=== PATIENT | male | born 1945 | race Caucasian/White ===

== ENCOUNTER → 2017-07-13 07:10 | Outpatient (CLI) | payer MEDICARE, SELFPAY ==
[2017-07-13 10:48] LABS: Anion Gap 11.5 mEq/L (5-15); Blood Urea Nitrogen 34 mg/dL (7-18); Carbon Dioxide 34 mmol/L (21.0-32.0); Chloride 104 mmol/L (98-107); Creatinine,Serum 1.67 mg/dL (0.70-1.30); Estimated Glomerular Filt Rate 41 ml/min (>60); GFR (African American) 49 ML/MIN (>60); Glucose 140 mg/dL (74-106); Potassium 4.5 mmoL/L (3.5-5.1); Sodium 145 mmol/L (136-145)
== END ==
PROVIDERS: PCP Internal Medicine Adolescent Medicine; Visit Provider Physician Assistant
DX: I42.9 Cardiomyopathy, unspecified (principal); I10 Essential (primary) hypertension; E78.5 Hyperlipidemia, unspecified; I25.10 Atherosclerotic heart disease of native coronary artery without angina pectoris
CPT/HCPCS: 36415; 80048

== ENCOUNTER → 2017-12-01 11:11 | Outpatient (CLI) | payer MEDICARE, SELFPAY ==
--- NOTE | 2017-12-01 11:19 | XR_ITS ---
XR ankle RT min 3V HISTORY: ITS.REASON: RT ANKLE PAIN ORDERING PHYSICIAN: Juan C Ervin MD PATIENT AGE: 72 years COMPARISON: None FINDINGS: No fracture or dislocation. No lytic or blastic change. There is normal mineralization.. The joint spaces are well-preserved. No significant degenerative/arthritic changes. No erosive changes evident. There is mild soft tissue swelling laterally IMPRESSION: Mild lateral soft tissue swelling otherwise negative right ankle
== END ==
PROVIDERS: PCP Internal Medicine Adolescent Medicine; Visit Provider Internal Medicine Adolescent Medicine
DX: M25.571 Pain in right ankle and joints of right foot (principal)
CPT/HCPCS: 73610

== ENCOUNTER → 2018-01-14 08:20 | Outpatient (CLI) | payer MEDICARE, SELFPAY ==
[2018-01-14 08:43] LABS: Blood Urea Nitrogen 27 mg/dL (7-18); Creatinine,Serum 1.56 mg/dL (0.70-1.30); Estimated Glomerular Filt Rate 44 ml/min (>60); GFR (African American) 53 ML/MIN (>60)
--- NOTE | 2018-01-14 08:57 | CT_ITS ---
CT chest w con HISTORY: ITS.REASON: pulmonary nodules ORDERING PHYSICIAN: Miguel Jordan MD PATIENT AGE: 72 years COMPARISON: CT chest January 2017 Technique: Axial images obtained. 75 cc IV utilized. Patient hydrated before and after scan. Sagittal and coronal reformatted images are also generated and reviewed. All CT scans at the facility use one or more dose reduction, viz: automated exposure control; ma/kV adjustment per patient size (including targeted exams where dose is matched to indication; i.e. head); or iterative reconstruction technique. FINDINGS: LUNG VALENTINO This study is performed to further evaluate a small nodule seen right upper lobe towards apex on prior January 2017 CT.. On today's study small 4.4q mm nodule noncalcified is again seen at the periphery right upper lobe and stable. If not very slightly less evident No infiltrate. No acutePulmonary findings. Minimal linear scarring accounts for the minimal density at medial left lung base Small calcified granuloma seen at the medial aspect of the right lung base, medial posterior sulcus. HEART: No significant pericardial effusion mild cardiomegaly with. Left ventricular enlargement/dilatation suggested MEDIASTINAL AND HILAR STRUCTURES: No mediastinal or hilar mass evident. No significant/dominant adenopathy. There 15 mm x 10 borderline enlarged lymph node right paratracheal region. (Slightly larger than 2017 study at which time this node measured 13 x 8 mm) . Other adjacent moderate nodes measuring up to 12 mm are seen in the same region. Scattered small nodes in the pretracheal region largest measuring 13 x 10 mm lymph node right paratracheal region which is actually larger previously measuring 13 mm x 8 mm. And because these features I would again suggest a follow-up study in an 9 months to exclude any progressive the adenopathy suggested and to follow the likely benign lung nodule AORTA: No acute finding. No thoracic aortic aneurysm or dissection evident PLEURAL SPACES: No significant effusion. No evidence of pneumothorax. BONY STRUCTURES: No acute bony abnormalities apparent UPPER ABDOMEN: 3.3 x 2.6 cm densely calcified gallstone in neck of gallbladder. No inflammatory changes. No biliary ductal dilatation Right kidney 8 cm cyst again noted. Stable 2.3 cm. Diffuse fatty changes of liver. Mild gynecomastia bilaterally again noted. T-spine intact. Ribs intact. Cyst anterior aspect of spleen ---------IMPRESSION: -------- 1. Stable tiny noncalcified nodule at the periphery right upper lobe .. Measuring 4.5 mm.,. No significant changes 2017 . Follow-up adequate Minimal parenchymal scarring left base stable. Not of concern 2. Mediastinal lymph nodes are very slightly more generous vs 2017 . Right paratracheal node upper normal in size measuring 15 x 10 mm. 3. Follow-up CT chest in 9 months suggested... 4. Cholelithiasis. Hepatic steatosis. Stable Benign right renal cyst. Stable anterior left splenic cyst 5. Mild Cardiomegaly with left ventricular enlargement suggested
--- NOTE | 2018-01-14 10:11 | HMH.ITSHM ---
ASPIRIN,KALIN MARESQ, PROCARDIAKRISTINEYKCATARINARIN
== END ==
PROVIDERS: PCP Internal Medicine Adolescent Medicine; Visit Provider Internal Medicine
DX: R91.1 Solitary pulmonary nodule (principal); R91.8 Other nonspecific abnormal finding of lung field; I25.10 Atherosclerotic heart disease of native coronary artery without angina pectoris; I10 Essential (primary) hypertension; I35.1 Nonrheumatic aortic (valve) insufficiency; I34.0 Nonrheumatic mitral (valve) insufficiency; I42.9 Cardiomyopathy, unspecified; I44.7 Left bundle-branch block, unspecified; E78.5 Hyperlipidemia, unspecified
CPT/HCPCS: 36415; 71260; 82565; 84520; Q9967

== ENCOUNTER 2018-05-20 02:53 | Inpatient (IN) ==
[2018-05-20 03:10] LABS: ABG Base Excess -0.5 mmol/L (-2.4-2.3); ABG HCO3 26.7 mmhg (22.0-26.0); ABG Oxygen Saturation 83 % (90-100); ABG PH 7.25 mmol/L (7.35-7.45); ABG PO2 53.4 mmhg (80-100); ABG TCO2 28.5 mmhg (23-27)
[2018-05-20 03:11] LABS: Allen's Test Acceptable; Oxygen 36 %
[2018-05-20 03:12] LABS: ABG PCO2 61.6 mmhg (35.0-45.0)
[2018-05-20 03:18] LABS: Basophils # 0.1 K/mm3 (0-0.2); Basophils % 0.8 % (0.1-2.0); Eosinophils # 0.4 K/mm3 (0.0-0.4); Hematocrit 47.5 % (42.0-52.0); Lymphocytes # 3.3 K/mm3 (0.7-4.5); Lymphocytes % 27.9 % (10-50); Mean Corpuscular HGB Conc 31.6 g/dL (31.8-35.4); Mean Corpuscular Hemoglobin 29.5 pg (27.0-31.2); Mean Corpuscular Volume 93.5 fl (80-94); Mean Platelet Volume 7.5 fl (7.4-10.4); Monocytes # 0.5 K/mm3 (0.1-1.0); Monocytes % 4.4 % (1.7-9.3); Neutrophils # 7.5 K/mm3 (1.8-7.8); Neutrophils % 63.8 % (37.0-80.0); Platelet Count 259 K/mm3 (142-424); Red Blood Count 5.08 M/mm3 (4.60-6.20); Red Cell Distribution Width 14.3 % (11.5-17.5); White Blood Count 11.7 K/mm3 (4.8-10.8)
--- NOTE | 2018-05-20 03:24 | Emergency Department Note ---
ED Disposition Clinical Impression: Left bundle branch block, Renal insufficiency CHF (congestive heart failure) Qualifiers: Heart failure type: unspecified Heart failure chronicity: acute on chronic Qualified Code(s): I50.9 - Heart failure, unspecified Chest pain Qualifiers: Chest pain type: precordial pain Qualified Code(s): R07.2 - Precordial pain HTN (hypertension) Qualifiers: Hypertension type: unspecified Qualified Code(s): I10 - Essential (primary) hypertension Disposition: Admitted As Inpatient Condition on Discharge: Serious Referrals: Juan C Ervin MD [Primary Care Provider] - - Critical Care Critical Care Time: No Attestation: On 05/20/18, the high probability of a clinically significant, sudden or life threatening deterioration of the following system(s) required my full and direct attention, intervention and personal management. The time I documented below is in addition to time spent performing reported procedures but includes the following listed in this critical care notation. Medical Decision Making - Medical Records Medical records reviewed: Yes: I reviewed the patient's medical records. - Tolu Inquiry Pt receiving controlled substance: No Vital Signs: 05/20/18 02:53 05/20/18 03:17 05/20/18 03:30 Temperature 98.6 F Temperature Source Oral Pulse Rate [Apical] 107 H Pulse Rate [Right] 140 H 117 H Respiratory Rate 36 H 26 H 24 Blood Pressure [Right Arm] 182/87 H 135/71 133/76 Blood Pressure Mean [Right Arm] 118 92 95 Blood Pressure Source [Right Arm] Automatic Cuff Blood Pressure Position [Right Arm] Supine 02 Sat by Pulse Oximetry 84 L 89 L 91 L Oxygen Delivery Method Room Air Nasal Cannula Vapotherm Oxygen Flow Rate (LPM) 4 10 - Lab Data Lab results reviewed: Yes: I reviewed the patient's lab results. Lab Results 05/20/18 02:55: WBC 11.7 H, RBC 5.08, Hgb 15.0, Hct 47.5, MCV 93.5, MCH 29.5, MCHC 31.6 L, RDW 14.3, Plt Count 259, MPV 7.5, Neut % (Auto) 63.8, Lymph % (Auto) 27.9, Kent % (Auto) 4.4, Eos % (Auto) 3.0, Baso % (Auto) 0.8, Neut # (Auto) 7.5, Lymph # (Auto) 3.3, [place] # (Auto) 0.5, Eos # (Auto) 0.4, Baso # (Auto) 0.1 05/20/18 02:55: Sodium 141, Potassium 4.5, Chloride 104, Carbon Dioxide 28, Anion Gap 13.5, BUN 26 H, Creatinine 1.55 H, Estimated Creat Clear 66, Estimated GFR 44 L, Est GFR ( Amer) 54 L, Glucose 198 H, Calcium 8.7, Total Bilirubin 0.8, Direct Bilirubin 0.2, Indirect Bilirubin 0.6, AST 14 L, ALT 25, Alkaline Phosphatase 63, Troponin I 0.06, Total Protein 7.6, Albumin 3.7 05/20/18 02:55: B-Natriuretic Peptide 523 H 05/20/18 02:59: Specimen Source Rt radial, O2 % 36, ABG pH 7.25 L, ABG pCO2 61.6 H, ABG pO2 53.4 L, ABG HCO3 26.7 H, ABG Total CO2 28.5 H, ABG O2 Saturation 83 L*, ABG Base Excess -0.5, Kevyn Test Acceptable Result diagrams: 05/20/18 02:55 05/20/18 02:55 Orders (Tests/Meds): ED MEDICATIONS Generic Name Dose Route Start Last Admin Trade Name Freq PRN Reason Stop Dose Admin Nitroglycerin/Dextrose 250 mls @ 1.5 mls/hr 05/20/18 03:00 05/20/18 03:08 Nitroglycerin 50mg/250ml D5w IV 06/19/18 02:59 5 mcg/min .Q24H TATIANA 1.5 mls/hr Administration Protocol 5 MCG/MIN Discontinued Medications Generic Name Dose Route Start Last Admin Trade Name Freq PRN Reason Stop Dose Admin Aspirin 324 mg 05/20/18 02:58 05/20/18 03:18 Aspirin 81mg Chewable Tablet PO 05/20/18 02:59 324 mg ONCE ONE Administration Furosemide 40 mg 05/20/18 02:58 05/20/18 03:08 Lasix 40mg/4ml Vial IV 05/20/18 02:59 40 mg ONCE ONE Administration Morphine Sulfate 4 mg 05/20/18 02:58 05/20/18 03:08 Morphine 4mg/Ml Syringe IV 05/20/18 02:59 4 mg ONCE ONE Administration Ondansetron HCl 4 mg 05/20/18 02:59 05/20/18 03:08 Zofran 4mg/2ml Vial IV 05/20/18 03:00 4 mg ONCE ONE Administration ORDERS Category Date Time Status XR chest portable Stat Exams 05/20/18 02:58 Taken Lactic Acid Stat Lab 05/20/18 03:34 Received Urinalysis and Microscopic Stat Lab 05/20/18 03:00 Ordered Blood Culture Stat Micro 05/20/18 03:34 Received ABG [Arterial Blood Gas] Stat RT 05/20/18 02:59 Ordered ECG Request by /Caroline Stat Y 05/20/18 02:58 Ordered - Radiology Data #1 Image(s): Chest Image Reviewed: Yes I reviewed the patient's radiology image Preliminary Findings: Abnormal (cm/chf) - ECG Data Tracing #1 I reviewed this ECG and interpreted as documented below: Arrhythmias present: sinus tach Conduction abnormalities present: LBBB ECG compared to prior tracings: there are no significant changes Chest Pain HPI - General Chief Complaint: Chest Pain Stated Complaint: chest pain Time Seen by Provider: 05/20/18 02:55 Mode of Arrival: Wheelchair Source of Information: Patient, Relative, Medical Record Limitations: No Limitations Description of Symptoms (Recalled from ER Triage Doc. by RN): Pt c/o left sided CP wth SOA. - History of Present Illness HPI narrative: acute onset of chest pain with sob tonight with hx of cad and chf - no fever MD complaint: chest pain indicative of cardiac Onset (ago): hour(s) Duration: constant Activity at onset: during rest Pain location: substernal Severity: similar to previous episodes Quality: tightness Pain radiation: none Associated symptoms: diaphoresis, dyspnea Risk Factors for CAD: Hypertension, Hypercholesterolemia, Family Hx of CAD Treatments prior to or on arrival for Cardiac Chest Pain: none - MELANIE Score Non-Stemi Age of patient: 65 yrs or more Number of risk factors for CAD: Presence of 3 or more Prior coronary artery stenosis(seen in coronary angiography): Less than 50% ST-Segment deviation on ECG (more than 1 min): Absent Prior aspirin intake: ASA intake in the last 7 days Severe anginal chest pain: No or one episode in last 24 hours Elevated cardiac markers(CK-MB or troponin): Absent Non-Stemi Risk Score: 3 - Related Data Prior Cardiac Testing/Procedures: Cardiac Angiogram Home Medications Medication Instructions Recorded Confirmed allopurinol 300 mg tablet 300 mg PO DAILY tab 12/28/17 05/20/18 Aspirin [Low Dose Aspirin EC] 81 mg PO DAILY 05/20/18 05/20/18 Carvedilol [Carvedilol 6.25mg Tab] 6.25 mg PO BID 05/20/18 05/20/18 Furosemide [Furosemide 40MG tAB] 40 mg PO QDAY 05/20/18 05/20/18 NIFEdipine [Procardia] 10 mg PO TID 05/20/18 05/20/18 Allergies Allergy/AdvReac Type Severity Reaction Status Date / Time Penicillins [PENICILLINS] Allergy Unknown Verified 05/20/18 03:08 [facility] History I have reviewed the patient's past medical history: Yes Medical History: Reports:: Cancer (skin), Cardiomyopathy, Coronary Artery Disease, Hyperlipidemia, Hypertension Denies:: Diabetes Mellitus Type 1, Diabetes Mellitus Type 2 Laterality Cases: Right: Total Hip Replacement - Social History Smoking Status: Never smoker Alcohol Intake: never Alcohol Intake Frequency:: other Substance Use Type: denies use - Psychiatric History Expresses thoughts of harming self/others: None Suicide Plan Description: No Plan ROS Obtained: Yes All systems reviewed & no additional complaints - Constitutional Constitutional: Denies fever(s) - Eyes Eyes: Denies change in vision - ENT Ears, Nose, Mouth, and Throat: Denies sore throat - Cardiovascular Cardiovascular: Reports chest pain at rest, Reports dyspnea - Respiratory Respiratory: Yes dyspnea - Gastrointestinal Gastrointestingal: Denies: abdominal pain - Genitourinary Male Genitourinary: Denies hematuria - Musculoskeletal Musculoskeletal: Denies joint pain - Integumentary/Breasts Skin/Breast: Denies rash - Neurologic Neurologic: Denies seizure-like activity Physical Exam - General General appearance: alert, anxious - Head Head exam: normocephalic - Eye Eye exam: Present: PERRL, EOMI - ENT ENT exam: Present: mucous membranes dry - Neck Neck exam: Present: trachea midline - Respiratory Respiratory exam: Present: wheezes, other (bilat rales ). Absent: respiratory distress - Cardiovascular Cardiovascular exam: Present: tachycardia, systolic murmur, +S3 - Abdominal Exam Abdominal exam: Present: soft - Extremities Exam Extremities exam: Present: pedal edema. Absent: calf tenderness - Neurological Exam Neurological exam: Present: alert, oriented X3, CN II-XII intact - Psychiatric Psychiatric exam: Present: anxious - Skin Skin exam: Absent: rash
[2018-05-20 03:29] LABS: Albumin Level 3.7 gm/dL (3.4-5.0); Anion Gap 13.5 mEq/L (5-15); Bilirubin,Direct 0.2 mg/dL (0.0-0.2); Bilirubin,Indirect 0.6 mg/dL (0.0-0.9); Bilirubin,Total 0.8 mg/dL (0.2-1.0); Calcium 8.7 mg/dL (8.5-10.1); Potassium 4.5 mmoL/L (3.5-5.1); Total Protein,Serum 7.6 gm/dL (6.4-8.2)
--- NOTE | 2018-05-20 07:09 | Consult Report ---
History of Present Illness Consult date: 05/20/18 Requesting physician: Florentin Harrington Consult reason: shortness of breath Chief complaint: Shortness of breath with chest tightness Additional Medical History:: 1. Normal coronary arteries by cardiac catheterization 05/2015 2. Aortic insufficiency, severe by echocardiogram 12/2016 A. Moderately enlarged left atrium, moderately dilated left ventricle, mild concentric left ventricular hypertrophy, reduced left ventricular systolic function, visually estimated ejection fraction of 40-45%, left ventricle is globally hypokinetic. Abnormal aortic valve is associated with severe aortic insufficiency, there is no premature closure of the mitral valve, but there is Doppler evidence of raised left atrial as well as left ventricular end-diastolic pressure. Moderate mitral and mild tricuspid regurgitation. No significant pericardial effusion noted. 3. Hypertension 4. Left bundle branch block by EKG 5. Hyperlipidemia, on statin therapy 6. History of aortic root enlargement, stable by last evaluation 2016 7. History of right upper lobe nodule, stable by serial CT scans, 2016 8. CKD, stage 3 with GFR 44 and Cr 1.55, 05/2018 History of present illness: 72-year-old white male admitted for onset of shortness of breath that progressed to include chest tightness and discomfort. Patient was seen in the emergency room with initial troponin upper limits of normal but with evidence of congestive heart failure by chest x-ray and elevated BNP. EKG showed sinus tachycardia with left bundle branch block. Patient was admitted and placed on nitroglycerin drip with improvement in his symptoms. Cardiology has been consulted for evaluation recommendations. Patient has a known history of severe aortic insufficiency that has been treated medically. He has a cardiomyopathy with ejection fraction in the 40-45% range by last evaluation in 2016 with a history of normal coronary arteries in 2014 by cardiac catheterization. [facility] History Medical History: Reports:: Cancer (skin), Cardiomyopathy, Coronary Artery Disease, Hyperlipidemia, Hypertension Denies:: Diabetes Mellitus Type 1, Diabetes Mellitus Type 2, MRSA Laterality Cases: Right: Arthroscopy Hip, Total Hip Replacement Other Surgeries: Yes: Hernia Repair Amputation: No - *Social History Educational Level: Completed Graduate School Smoking Status: Never smoker Alcohol Intake: never Alcohol Intake Frequency:: other Substance Use Type: denies use Occupational Status: retired Household Members: spouse - Psychiatric History Expresses thoughts of harming self/others: None Suicide Plan Description: No Plan *Family Hx:: Cancer, Heart Attack, Hypertension Meds Home Medications Medication Instructions Recorded Confirmed Type allopurinol 300 mg tablet 300 mg PO DAILY tab 12/28/17 05/20/18 History Aspirin [Low Dose Aspirin EC] 81 mg PO DAILY 05/20/18 05/20/18 History Carvedilol [Carvedilol 6.25mg Tab] 6.25 mg PO BID 05/20/18 05/20/18 History Furosemide [Furosemide 40MG tAB] 40 mg PO QDAY 05/20/18 05/20/18 History NIFEdipine [Procardia] 10 mg PO TID 05/20/18 05/20/18 History Allergies Allergy/AdvReac Type Severity Reaction Status Date / Time Penicillins [PENICILLINS] Allergy Unknown Verified 05/20/18 03:08 Review of Systems - *Cardiovascular Reports chest pain, Reports shortness of breath with activity - *Respiratory Reports shortness of breath with activity - *Gastrointestinal Denies loose stools, Denies black, tarry stools - *Genitourinary Denies blood in urine - *Neurologic Denies seizure-like activity Exam Vital signs and Labs for Last 24 Hours: Temp Pulse Resp BP Pulse Ox 98.0 F 103 H 14 128/63 94 L 05/20/18 04:15 05/20/18 05:31 05/20/18 04:15 05/20/18 04:15 05/20/18 06:24 Laboratory Results - last 24 hr 05/20/18 02:55: WBC 11.7 H, RBC 5.08, Hgb 15.0, Hct 47.5, MCV 93.5, MCH 29.5, MCHC 31.6 L, RDW 14.3, Plt Count 259, MPV 7.5, Neut % (Auto) 63.8, Lymph % (Auto) 27.9, Keith % (Auto) 4.4, Eos % (Auto) 3.0, Baso % (Auto) 0.8, Neut # (Auto) 7.5, Lymph # (Auto) 3.3, Keith # (Auto) 0.5, Eos # (Auto) 0.4, Baso # (Auto) 0.1 05/20/18 02:55: Sodium 141, Potassium 4.5, Chloride 104, Carbon Dioxide 28, Anion Gap 13.5, BUN 26 H, Creatinine 1.55 H, Estimated Creat Clear 66, Estimated GFR 44 L, Est GFR ( Amer) 54 L, Glucose 198 H, Calcium 8.7, Total Bilirubin 0.8, Direct Bilirubin 0.2, Indirect Bilirubin 0.6, AST 14 L, ALT 25, Alkaline Phosphatase 63, Troponin I 0.06, Total Protein 7.6, Albumin 3.7 05/20/18 02:55: B-Natriuretic Peptide 523 H 05/20/18 02:59: Specimen Source Rt radial, O2 % 36, ABG pH 7.25 L, ABG pCO2 61.6 H, ABG pO2 53.4 L, ABG HCO3 26.7 H, ABG Total CO2 28.5 H, ABG O2 Saturation 83 L*, ABG Base Excess -0.5, Kevyn Test Acceptable 05/20/18 03:34: Lactate 1.3 05/20/18 05:30: Magnesium 1.9, Troponin I 0.25 H I & O for Last 24 hours: Intake & Output 05/17/18 05/18/18 05/19/18 05/20/18 11:59 11:59 11:59 11:59 Intake Total Balance Weight 245 lb 1 oz - *Routine Neck Exam Present: supple. Absent: JVD, carotid bruit - *Routine Respiratory Exam Present: decreased breath sounds, CTA bilaterally. Absent: accessory muscle use, rales, rhonchi, wheezes - *Routine Cardiovascular Exam Present: RRR, murmur. Absent: gallop, rubs - *Routine Extremities Exam Present: edema. Absent: calf tenderness - *Routine Neurological Exam Present: alert, oriented X3, moving all extremities Assessment and Plan (1) CHF (congestive heart failure) Current visit: Yes Status: Acute Qualifiers: Heart failure type: unspecified Heart failure chronicity: acute on chronic Qualified Code(s): I50.9 - Heart failure, unspecified Category: Medical Code(s): I50.9 - Heart failure, unspecified (2) Chest pain Current visit: Yes Status: Acute Qualifiers: Chest pain type: precordial pain Qualified Code(s): R07.2 - Precordial pain Category: Medical Code(s): R07.9 - Chest pain, unspecified (3) HTN (hypertension) Current visit: Yes Status: Acute Qualifiers: Hypertension type: unspecified Qualified Code(s): I10 - Essential (primary) hypertension Category: Medical Code(s): I10 - Essential (primary) hypertension (4) Left bundle branch block Current visit: Yes Status: Acute Category: Medical Code(s): I44.7 - Left bundle-branch block, unspecified (5) Renal insufficiency Current visit: Yes Status: Acute Category: Medical Code(s): N28.9 - Disorder of kidney and ureter, unspecified (6) Aortic valve regurgitation Current visit: No Status: Acute Qualifiers: Cardiac valve disease etiology: etiology unspecified Qualified Code(s): I35.1 - Nonrheumatic aortic (valve) insufficiency Category: Medical Code(s): I35.1 - Nonrheumatic aortic (valve) insufficiency (7) Cardiomyopathy Current visit: No Status: Acute Qualifiers: Cardiomyopathy type: unspecified Qualified Code(s): I42.9 - Cardiomyopathy, unspecified Category: Medical Code(s): I42.9 - Cardiomyopathy, unspecified (8) HLD (hyperlipidemia) Current visit: No Status: Acute Qualifiers: Hyperlipidemia type: other hyperlipidemia Category: Medical Code(s): E78.5 - Hyperlipidemia, unspecified (9) Mitral valve regurgitation Current visit: No Status: Acute Qualifiers: Cardiac valve disease etiology: etiology unspecified Qualified Code(s): I34.0 - Nonrheumatic mitral (valve) insufficiency Category: Medical Code(s): I34.0 - Nonrheumatic mitral (valve) insufficiency - Assessment and plan all Dx Assessment and Plan for all problems:: Clinically it seems as if the patient's aortic insufficiency has progressed. Now he has a positive troponin at 0.25 on his second draw. Will obtain an echocardiogram but would recommend proceeding with right and left heart catheterization and consideration of aortic valve replacement or repair.
--- NOTE | 2018-05-20 08:26 | History & Physical Report ---
*Admission Date: 05/20/18 *Chief complaint: SOA, Chest pain *History of present illness: 72-year-old male with history of CKD, hyperlipidemia, left bundle branch block, hypertension, and aortic insufficiency with reduced ejection fraction (40-45% in 2017). He presented to the ER because of onset of shortness of breath that progressed to include chest tightness and discomfort. Initial workup in the emergency room with initial troponin upper limits of normal but with evidence of congestive heart failure by chest x-ray and elevated BNP. EKG showed sinus tachycardia with left bundle branch block. Patient was admitted medicine service and placed on nitroglycerin drip with improvement in his symptoms. Cardiology has been consulted for evaluation recommendations. Patient has a known history of severe aortic insufficiency that has been treated medically. He has a cardiomyopathy with ejection fraction in the 40-45% range by last evaluation in 2016 with a history of normal coronary arteries in 2014 by cardiac catheterization. Cardiology seen patient this morning. Recommendations for Echo and cath. [facility] History I have reviewed the patient's past medical history: Yes Medical History: Reports:: Cancer (skin), Cardiomyopathy, Coronary Artery Disease, Hyperlipidemia, Hypertension Denies:: Diabetes Mellitus Type 1, Diabetes Mellitus Type 2, MRSA Laterality Cases: Right: Arthroscopy Hip, Total Hip Replacement Other Surgeries: Yes: Hernia Repair Amputation: No - *Social History Educational Level: Completed Graduate School Smoking Status: Never smoker Alcohol Intake: never Alcohol Intake Frequency:: other Substance Use Type: denies use Occupational Status: retired Household Members: spouse - Psychiatric History Expresses thoughts of harming self/others: None Suicide Plan Description: No Plan *Family Hx:: Cancer, Heart Attack, Hypertension Review of Systems - Review of Systems Review of systems:: pertinent systems reviewed and negative unless documented below - *Neurologic Denies seizure-like activity Meds Home Medications Medication Instructions Recorded Confirmed Type Aspirin [Low Dose Aspirin EC] 81 mg PO DAILY 05/20/18 05/20/18 History NIFEdipine [Procardia] 10 mg PO TID 05/20/18 05/20/18 History Allergies Allergy/AdvReac Type Severity Reaction Status Date / Time Penicillins [PENICILLINS] Allergy Unknown Verified 05/20/18 03:08 Exam Vital signs and Labs for Last 24 Hours: Temp Pulse Resp BP Pulse Ox 98.2 F 103 H 14 128/63 94 L 05/20/18 08:00 05/20/18 05:31 05/20/18 04:15 05/20/18 04:15 05/20/18 08:00 Laboratory Results - last 24 hr 05/20/18 02:55: WBC 11.7 H, RBC 5.08, Hgb 15.0, Hct 47.5, MCV 93.5, MCH 29.5, MCHC 31.6 L, RDW 14.3, Plt Count 259, MPV 7.5, Neut % (Auto) 63.8, Lymph % (Auto) 27.9, [place] % (Auto) 4.4, Eos % (Auto) 3.0, Baso % (Auto) 0.8, Neut # (Auto) 7.5, Lymph # (Auto) 3.3, [place] # (Auto) 0.5, Eos # (Auto) 0.4, Baso # (Auto) 0.1 05/20/18 02:55: Sodium 141, Potassium 4.5, Chloride 104, Carbon Dioxide 28, Ani on Gap 13.5, BUN 26 H, Creatinine 1.55 H, Estimated Creat Clear 66, Estimated GFR 44 L, Est GFR ( Amer) 54 L, Glucose 198 H, Calcium 8.7, Total Bilirubin 0.8, Direct Bilirubin 0.2, Indirect Bilirubin 0.6, AST 14 L, ALT 25, Alkaline Phosphatase 63, Troponin I 0.06, Total Protein 7.6, Albumin 3.7 05/20/18 02:55: B-Natriuretic Peptide 523 H 05/20/18 02:59: Specimen Source Rt radial, O2 % 36, ABG pH 7.25 L, ABG pCO2 61.6 H, ABG pO2 53.4 L, ABG HCO3 26.7 H, ABG Total CO2 28.5 H, ABG O2 Saturation 83 L*, ABG Base Excess -0.5, Kevyn Test Acceptable 05/20/18 03:34: Lactate 1.3 05/20/18 05:30: Magnesium 1.9, Troponin I 0.25 H I & O for Last 24 hours: Intake & Output 05/17/18 05/18/18 05/19/18 05/20/18 23:59 23:59 23:59 23:59 Intake Total 250 / 250 Output Total 250 / 250 Balance 0 / 0 Weight 111.158 kg - *Routine HEENT Exam Head: Present: normocephalic, atraumatic Eye: Present: EOMI, PERRL ENT: Present: mucous membranes moist - *Routine Neck Exam Present: supple, full ROM, JVD - *Routine Respiratory Exam Present: prolonged expiratory phase, rales. Absent: CTA bilaterally, wheezes, crackles - *Routine Cardiovascular Exam Present: RRR Comments: distant faint heart sounds - *Routine Abdominal Exam Present: soft, normoactive bowel sounds. Absent: tenderness - *Routine Rectal Exam Patient deferred: visual exam - *Routine Exam Patient deferred: penile exam - *Routine Extremities Exam Present: edema. Absent: cyanosis, clubbing - *Routine Skin Exam Present: intact. Absent: cyanosis, erythema - *Routine Neurological Exam Present: alert, oriented X3. Absent: altered mental status Assessment and Plan (1) CHF (congestive heart failure) Status: Chronic Qualifiers: Heart failure type: systolic Heart failure chronicity: acute on chronic Qualified Code(s): I50.23 - Acute on chronic systolic (congestive) heart failure Category: Medical Code(s): I50.9 - Heart failure, unspecified (2) Chest pain Status: Acute Qualifiers: Chest pain type: precordial pain Qualified Code(s): R07.2 - Precordial pain Category: Medical Code(s): R07.9 - Chest pain, unspecified continue Nitro gtt (3) HTN (hypertension) Status: Acute Qualifiers: Hypertension type: unspecified Qualified Code(s): I10 - Essential (primary) hypertension Category: Medical Code(s): I10 - Essential (primary) hypertension (4) Left bundle branch block Status: Chronic Category: Medical Code(s): I44.7 - Left bundle-branch block, unspecified (5) Renal insufficiency Status: Acute Category: Medical Code(s): N28.9 - Disorder of kidney and ureter, unspecified suspect improvement with diuresis (6) Aortic valve regurgitation Status: Acute Qualifiers: Cardiac valve disease etiology: etiology unspecified Qualified Code(s): I35.1 - Nonrheumatic aortic (valve) insufficiency Category: Medical Code(s): I35.1 - Nonrheumatic aortic (valve) insufficiency (7) Cardiomyopathy Status: Acute Qualifiers: Cardiomyopathy type: unspecified Qualified Code(s): I42.9 - Cardiomyopathy, unspecified Category: Medical Code(s): I42.9 - Cardiomyopathy, unspecified (8) HLD (hyperlipidemia) Status: Acute Qualifiers: Hyperlipidemia type: other hyperlipidemia Qualified Code(s): E78.49 - Other hyperlipidemia; E78.4 - Other hyperlipidemia Category: Medical Code(s): E78.5 - Hyperlipidemia, unspecified (9) Mitral valve regurgitation Status: Acute Qualifiers: Cardiac valve disease etiology: etiology unspecified Qualified Code(s): I34.0 - Nonrheumatic mitral (valve) insufficiency Category: Medical Code(s): I34.0 - Nonrheumatic mitral (valve) insufficiency - Assessment and plan all Dx Assessment and Plan for all problems:: acute concern for CHF exacerbation. Echo performed this morning with significant reduction in EF to 30%, and severe Aortic regurg. Cardiac cath pending. Dispo pendign findings. - continue Diuresis - Supplemental O2 as needed for goal 92 awake - requires further inpatient medical management - cardiology consult, appreciate recs.
--- NOTE | 2018-05-20 09:27 | Pharmacy Consult Notes ---
[facility] Pharmacy VTE Monitoring - Patient Demographics Admission date: 05/20/18 Report Date: 05/20/18 Time: 09:27 Allergies/Adverse Reactions: Patient Allergies Penicillins [PENICILLINS] Allergy (Unknown, Verified 05/20/18 03:08) Height: 1.75 m Weight: 111.158 kg Patient Problems: Current Active Problems CHF (congestive heart failure) (Acute) Chest pain (Acute) Renal insufficiency (Acute) Left bundle branch block (Acute) HTN (hypertension) (Acute) - VTE Risk Labs: VTE Related Lab Results Hgb 15.0 g/dL (14.1-18.0) 05/20/18 02:55 Hct 47.5 % (42.0-52.0) 05/20/18 02:55 Plt Count 259 K/mm3 (142-424) 05/20/18 02:55 BUN 26 mg/dL (7-18) H 05/20/18 02:55 Creatinine 1.55 mg/dL (0.70-1.30) H 05/20/18 02:55 Estimated Creat Clear 66 mL/min (50-200) 05/20/18 02:55 Was VTE Risk Assessment Performed: Yes VTE Score: 6 VTE Risk Level: Moderate Risk Clinical Trial Participant: No - Prophylaxis VTE Prophylaxis Ordered?: Yes Types of VTE Prophylaxis: TEDS Knee High, Pharmacological Pharmacologic Type: Enoxaparin
--- NOTE | 2018-05-20 12:49 | Cardiology Report ---
PROCEDURE: 2-D M-mode and color Doppler study INDICATIONS FOR THE TEST: Chest painX COPD Heart Murmur Tobacco Smoking Palpitations Fatigue Syncope Edema Hypertension Diabetes Mellitus Rheumatic Fever SOBXDOEXObesityXHyperlipidemia Family History HD Additional History H/O SEV AI PATIENT INFORMATION HEIGHT: 69 WEIGHT:240 GENDER: Male B/P:145/67 2-D/M-MODE INTERPRETATION: 2-D MEASUREMENTS OBSERVED VALUES IN CMS Right Ventricular Dimension (RVDd) 3.1 Interventricular Septum (Thickness)(IVsd) 1.1 Left Ventricular Internal Dimensions(LVIDd) 9.0 Left Ventricular Posterior Wall (Thickness)(LVPWd) 1.2 Aortic Root 3.6 Aortic Cusp Separation Left Atrial Dimensions (LAD) 3.6 2D 1. Left atrium is mildly enlarged, left ventricle is moderately dilated, there is mild concentric left ventricular hypertrophy, there is severely reduced left ventricular systolic function, visually estimated ejection fraction approximately 30%, left ventricle is globally hypokinetic, endocardial surfaces are poorly visualized. 2. The right atrium and right ventricle are mildly enlarged with normal contractility. 3. The aortic valve is thickened and calcified. 4. The mitral and tricuspid valve leaflets are minimally thickened. 5. The pulmonic valve is poorly visualized. 6. No significant pericardial effusion noted. DOPPLER INTERROGATION: Doppler interrogation of the aortic, mitral and tricuspid valvular presence of severe aortic, mild mitral and tricuspid regurgitation, tricuspid regurgitation jet velocity is inadequate for calculation of the right ventricular systolic pressure, diastolic parameters are inconclusive. CONCLUSION: 1. Mildly enlarged left atrium, moderately dilated left ventricle, mild concentric left ventricular hypertrophy, severely reduced left ventricular systolic function, visually estimated ejection fraction 30%, left ventricle is globally hypokinetic. Diastolic parameters are inconclusive. 2. Severe aortic, mild mitral and tricuspid regurgitation 3. No significant pericardial effusion noted.
--- NOTE | 2018-05-20 16:57 | Discharge Summary ---
General - General Admission date:: 05/20/18 Discharge date: 05/20/18 HPI HPI: 72-year-old male with history of CKD, hyperlipidemia, left bundle branch block, hypertension, and aortic insufficiency with reduced ejection fraction (40-45% in 2017). He presented to the ER because of onset of shortness of breath that progressed to include chest tightness and discomfort. Initial workup in the emergency room with initial troponin upper limits of normal but with evidence of congestive heart failure by chest x-ray and elevated BNP. EKG showed sinus tachycardia with left bundle branch block. Patient was admitted medicine service and placed on nitroglycerin drip with improvement in his symptoms. Cardiology has been consulted for evaluation recommendations. Patient has a known history of severe aortic insufficiency that has been treated medically. He has a cardiomyopathy with ejection fraction in the 40-45% range by last evaluation in 2016 with a history of normal coronary arteries in 2014 by cardiac catheterization. Cardiology seen patient this morning. Recommendations for Echo and cath. Hospital Course Hospital Course: Admitted to medicine service for chest pain. Serial troponins tracked with elevation in enzymes. Cardiology consulted and recommended heart cath. No vessel disease observed, however patient noted to have clinically significant aortic valve insufficiency. Recommended immediate transfer to for valve replacement evaluation. Patient diuresed. contacted and transferred to cardio-thoracic surgery service. Remained hemodynamically stable with HiFlow NC respiratory support during admission. Objective Vital signs: Temp Pulse Resp BP Pulse Ox 98.4 F 91 H 20 158/74 H 95 05/20/18 15:41 05/20/18 15:41 05/20/18 15:41 05/20/18 15:41 05/20/18 15:05 Narrative: - *Routine HEENT Exam Head: Present: normocephalic, atraumatic Eye: Present: EOMI, PERRL ENT: Present: mucous membranes moist - *Routine Neck Exam Present: supple, full ROM, JVD - *Routine Respiratory Exam Present: prolonged expiratory phase, rales. Absent: CTA bilaterally, wheezes, crackles - *Routine Cardiovascular Exam Present: RRR Comments: distant faint heart sounds - *Routine Abdominal Exam Present: soft, normoactive bowel sounds. Absent: tenderness - *Routine Rectal Exam Patient deferred: visual exam - *Routine Exam Patient deferred: penile exam - *Routine Extremities Exam Present: edema. Absent: cyanosis, clubbing - *Routine Skin Exam Present: intact. Absent: cyanosis, erythema - *Routine Neurological Exam Present: alert, oriented X3. Absent: altered mental status Results Labs on day of discharge: Labs from last 24 hours 05/20/18 05/20/18 05/20/18 11:45 10:05 05:30 WBC RBC Hgb Hct MCV MCH MCHC RDW Plt Count MPV Neut % (Auto) Lymph % (Auto) [place] % (Auto) Eos % (Auto) Baso % (Auto) Neut # (Auto) Lymph # (Auto) [place] # (Auto) Eos # (Auto) Baso # (Auto) Specimen Source O2 % ABG pH ABG pCO2 ABG pO2 ABG HCO3 ABG Total CO2 ABG O2 Sat (Measured) 69.7 L ABG O2 Saturation ABG Base Excess Kevyn Test POC VBG O2 Sat ([place]) 69.2 L Sodium Potassium Chloride Carbon Dioxide Anion Gap BUN Creatinine Estimated Creat Clear Estimated GFR Est GFR ( Amer) Glucose Lactate Calcium Magnesium 1.9 Total Bilirubin Direct Bilirubin Indirect Bilirubin AST ALT Alkaline Phosphatase Troponin I 0.53 H 0.25 H B-Natriuretic Peptide Total Protein Albumin 05/20/18 05/20/18 05/20/18 03:34 02:59 02:55 WBC RBC Hgb Hct MCV MCH MCHC RDW Plt Count MPV Neut % (Auto) Lymph % (Auto) [place] % (Auto) Eos % (Auto) Baso % (Auto) Neut # (Auto) Lymph # (Auto) [place] # (Auto) Eos # (Auto) Baso # (Auto) Specimen Source Rt radial O2 % 36 ABG pH 7.25 L ABG pCO2 61.6 H ABG pO2 53.4 L ABG HCO3 26.7 H ABG Total CO2 28.5 H ABG O2 Sat (Measured) ABG O2 Saturation 83 L* ABG Base Excess -0.5 Kevyn Test Acceptable POC VBG O2 Sat (Laney) Sodium Potassium Chloride Carbon Dioxide Anion Gap BUN Creatinine Estimated Creat Clear Estimated GFR Est GFR ( Amer) Glucose Lactate 1.3 Calcium Magnesium Total Bilirubin Direct Bilirubin Indirect Bilirubin AST ALT Alkaline Phosphatase Troponin I B-Natriuretic Peptide 523 H Total Protein Albumin 05/20/18 05/20/18 02:55 02:55 WBC 11.7 H RBC 5.08 Hgb 15.0 Hct 47.5 MCV 93.5 MCH 29.5 MCHC 31.6 L RDW 14.3 Plt Count 259 MPV 7.5 Neut % (Auto) 63.8 Lymph % (Auto) 27.9 [place] % (Auto) 4.4 Eos % (Auto) 3.0 Baso % (Auto) 0.8 Neut # (Auto) 7.5 Lymph # (Auto) 3.3 [place] # (Auto) 0.5 Eos # (Auto) 0.4 Baso # (Auto) 0.1 Specimen Source O2 % ABG pH ABG pCO2 ABG pO2 ABG HCO3 ABG Total CO2 ABG O2 Sat (Measured) ABG O2 Saturation ABG Base Excess Kevyn Test POC VBG O2 Sat (Laney) Sodium 141 Potassium 4.5 Chloride 104 Carbon Dioxide 28 Anion Gap 13.5 BUN 26 H Creatinine 1.55 H Estimated Creat Clear 66 Estimated GFR 44 L Est GFR ( Amer) 54 L Glucose 198 H Lactate Calcium 8.7 Magnesium Total Bilirubin 0.8 Direct Bilirubin 0.2 Indirect Bilirubin 0.6 AST 14 L ALT 25 Alkaline Phosphatase 63 Troponin I 0.06 B-Natriuretic Peptide Total Protein 7.6 Albumin 3.7 DS: Diagnosis - Discharge Diagnosis (1) CHF (congestive heart failure) Status: Chronic (2) Chest pain Status: Acute (3) HTN (hypertension) Status: Acute (4) Left bundle branch block Status: Chronic (5) Renal insufficiency Status: Acute (6) Aortic valve regurgitation Status: Acute (7) Cardiomyopathy Status: Acute (8) HLD (hyperlipidemia) Status: Acute (9) Mitral valve regurgitation Status: Acute Discharge Plan - Patient Discharge Instructions ACTIVITY: Limited activity DIET: low fat, low cholesterol Patient Instructions: Cardiac Catheterization, Surgical Site Infection Forms: Transfer Record - Follow up Plan Disposition: Xfer Short-Term Hosp Home Medications: Home Medications Medication Instructions Recorded Confirmed Type Aspirin [Low Dose Aspirin EC] 81 mg PO DAILY 05/20/18 05/20/18 History NIFEdipine [Procardia] 10 mg PO TID 05/20/18 05/20/18 History Prescriptions/Medication Reconciliation: New Allopurinol [Allopurinol 300mg tablet] 300 mg PO DAILY tablet Furosemide [Lasix 40mg/4mL vial] 40 mg IV BIDL vial hydroCHLOROthiazide [HCTZ 25mg tab] 25 mg PO DAILY tablet Irbesartan [Avapro 150mg tablet] 150 mg PO DAILY tablet Continue Aspirin [Low Dose Aspirin EC] 81 mg PO DAILY NIFEdipine [Procardia] 10 mg PO TID Discontinued Furosemide [Furosemide 40MG tAB] 40 mg PO DAILY Carvedilol [Carvedilol 12.5mg Tab] 12.5 mg PO BID Allopurinol [Allopurinol 300mg tablet] 300 mg PO DAILY Losartan/Hydrochlorothiazide [Losartan-Hctz 100-25 mg Tab] 1 tab PO DAILY
== END 2018-05-20 16:10 | disposition short-term general hospital (02) ==
LOC: ER 02:53 → 2ND 03:52
PROVIDERS: ADMIT Emergency Medicine; ATTEND Internal Medicine Adolescent Medicine

== ENCOUNTER 2018-07-13 08:43 | Outpatient (RCR) | payer MEDICARE, SELFPAY | END 2018-09-28 08:54 | disposition home or self-care (01) | LOC: PT 08:43 | PROVIDERS: Visit Provider Internal Medicine | DX: Z95.2 Presence of prosthetic heart valve (principal) | CPT/HCPCS: 93798 ==

== ENCOUNTER → 2018-08-15 09:10 | Outpatient (CLI) | payer MEDICARE, SELFPAY | PROVIDERS: PCP Internal Medicine Adolescent Medicine; Visit Provider Physician Assistant | DX: I49.9 Cardiac arrhythmia, unspecified (principal) | CPT/HCPCS: 93225 ==

== ENCOUNTER → 2018-08-23 09:09 | Outpatient (CLI) | payer MEDICARE, SELFPAY | PROVIDERS: PCP Internal Medicine Adolescent Medicine; Visit Provider Internal Medicine | DX: I42.9 Cardiomyopathy, unspecified (principal); R06.02 Shortness of breath; I25.10 Atherosclerotic heart disease of native coronary artery without angina pectoris; E78.49 Other hyperlipidemia; I10 Essential (primary) hypertension | CPT/HCPCS: 93306 ==

== ENCOUNTER → 2018-11-14 10:28 | Outpatient (CLI) | payer MEDICARE, SELFPAY ==
[2018-11-14 11:53] LABS: Alanine Aminotransferase 18 U/L (12-78); Albumin Level 3.6 gm/dL (3.4-5.0); Albumin/Globulin Ratio 0.9 (1.1-1.8); Alkaline Phosphatase 81 U/L (46-116); Anion Gap 13.6 mEq/L (5-15); Aspartate Amino Transferase 14 U/L (15-37); Bilirubin,Total 1.1 mg/dL (0.2-1.0); Blood Urea Nitrogen 27 mg/dL (7-18); Calcium 9.1 mg/dL (8.5-10.1); Carbon Dioxide 29 mmol/L (21.0-32.0); Chloride 101 mmol/L (98-107); Chol/HDL Ratio 3.2 (1-3.5); Cholesterol 146 mg/dL (140-200); Creatinine,Serum 1.22 mg/dL (0.70-1.30); Estimated Glomerular Filt Rate 58 ml/min (>60); GFR (African American) 70 ML/MIN (>60); Globulin 3.8 gm/dl (1.3-3.2); Glucose 99 mg/dL (74-106); HDL Cholesterol 45 mg/dL (27-67); LDL Cholesterol 91 mg/dL (0-130); Potassium 4.6 mmoL/L (3.5-5.1); Sodium 139 mmol/L (136-145); Total Protein,Serum 7.4 gm/dL (6.4-8.2); Triglycerides 52 mg/dL (30-200); VLDL Cholesterol 10 mg/dL (0-40)
== END ==
PROVIDERS: Visit Provider Internal Medicine Adolescent Medicine
DX: I25.10 Atherosclerotic heart disease of native coronary artery without angina pectoris (principal); N18.3 Chronic kidney disease, stage 3 (moderate)
CPT/HCPCS: 36415; 80053; 80061